=== PATIENT | female | born 1955 | race Caucasian/White ===

== ENCOUNTER 2017-01-05 07:59 | Emergency (ER) | payer OTHER ==
[~2017-01-05] VITALS: Ht 154.9 cm; Wt 46.8 kg
[2017-01-05 08:01] VITALS: BP 122/72; PULSE 62; RESP 14; O2SAT 96
--- NOTE | 2017-01-05 08:35 | ED.REPORT ---
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 She cut the umbilical cord with a scissor and then nicked her fingertip with that scissor. She cannot recall whether she was using gloves at the time or not. She washed her hands thoroughly afterward. The source patient did not have any care. She has no other symptoms to report this time. Nursing Notes Stated Complaint: NEEDLE STICK/L AND I Chief Complaint: Post Exposure Body Fluids Allergies: Coded Allergies: Sulfa (Sulfonamide Antibiotics) (Verified Allergy, Unknown, 01/05/17) morphine (Verified Allergy, Unknown, 04/26/09) phenazopyridine (Verified Allergy, Unknown, 04/26/09) General Time Seen by MD: 08:23 Chief Complaint Other (Needlestick) Hx Obtained From: Patient Arrived By: Walk-in Sudden in Onset?: No Onset Occurred: Just prior to arrival Symptom Duration: Since onset Caused by: Accidental Recent Healthcare: No recent doctor visit, No recent hospitalization Similar Sx Previous: No Past Medical History Past Medical History Kidney stones Past Surgical History Thyroidectomy Right foot repair with hardware Reports: (2x), Tonsillectomy Smoking History Unknown if Ever Smoker Social History Alcohol Use: "Social" Drug Use: Denies drug use Ambulatory Status Independent Review of Systems + needle stick Complete sys rev & neg: except as marked. Physical Exam Vital Signs Vital Signs Date Time Temp Pulse Resp B/P Pulse Ox O2 Delivery O2 Flow Rate FiO2 01/05/17 08:01 36.8 62 14 122/72 96 Room Air Initial VS: Reviewed Head / Eyes: Atraumatic, Normocephalic Neck: Supple, Full range of motion Extremities: Vascular intact, Neuro intact Skin: Warm, Dry, No cyanosis Neurologic: Alert, Oriented, Nonfocal Psychiatric: Mood/affect normal, Behavior normal General/Constitutional: Awake, Alert, Cooperative Wrist / Hand: Neurologic intact, Vascular intact No visible needle stick on her right index finger where she identifies as the site. She reported that it was initially bleeding, but it is no longer bleeding. Interpretation & Diagnostics Lab Results Interpretation Test 01/05/17 08:30 Re-Eval/Medical Decision Med Decision/Clinical Course Postexposure panel #7 is drawn Source of Hx: Old records Time of Eval: 08:30 Re-Evaluation/Progress Note: Pt rechecked. Informed pt of plan for discharge. Pt understands and agrees with plan for discharge. F/U instructions and RTER warnings given. All questions addressed. Counseled Regarding: Diagnosis, Lab results, Need for follow-up, When/why to return to ED Discharge & Departure Primary Impression: Needle stick injury Encounter type: initial encounter Qualified Code: W27.3XXA - Contact with needle (sewing), initial encounter Disposition: Home Discharge Condition All VS Reviewed: Yes Condition: Stable Patient Instructions: Needle Stick Injuries (ED) Additional Instructions: Blood tests today will confirm your status pre-exposure. Follow-up with employee health next week for details of required follow-up. I do not recommend HIV protocol prophylaxis based on the nature of the exposure. Referrals: OTHER,PHYSICIAN (PCP) Beatrizibanna Attestation Portions of this note were transcribed by Chula Mooney. I, Dr. Larson personally performed the history, physical exam and medical decision-making; I reviewed and confirmed the accuracy of the information in the transcribed note. Signed by: Yunier Steward, 01/05/17 and 09:30. copies to: ELIZABETH,PHYSICIAN Guy Larson MD Jan 05, 2017 08:35 Chula Carvalho Jan 05, 2017 08:47
== END 2017-01-05 08:37 | disposition home or self-care (01) ==
LOC: SED 07:59
DX: S61.232A Puncture wound without foreign body of right middle finger without damage to nail, initial encounter (principal); W27.2XXA Contact with scissors, initial encounter; Y93.89 Activity, other specified; Y99.0 Civilian activity done for income or pay; Y92.238 Other place in hospital as the place of occurrence of the external cause; Z88.5 Allergy status to narcotic agent; Z88.2 Allergy status to sulfonamides
CPT/HCPCS: 36415; 86706; 87340; 99283; G0433